=== PATIENT | male | born 1990 | race Caucasian/White ===

== ENCOUNTER 2020-10-27 20:05 | Emergency (ER) | payer MEDICAID, SELFPAY ==
[2020-10-27 20:15] VITALS: BP 128/86; PULSE 73; RESP 14; TEMP 37.6; O2SAT 100
[2020-10-27 20:25] LABS: Basophils Percent Auto 0.4 % (0.2-1.2); Eosinophils Absolute Auto 0.2 K/mm3 (0-0.3); Eosinophils Percent Auto 1.6 % (0-4.4); Hematocrit 41.6 % (42.0-52.0); Hemoglobin 14.1 g/dL (14.0-18.0); Immature Granulocyte Absolute 0.03 K/mm3 (0.00-0.031); Immature Granulocyte Percent A 0.3 % (0-0.5); Lymphocytes Absolute Auto 2.73 K/mm3 (0.9-3.2); Lymphocytes Percent Auto 26.6 % (18.3-44.2); Mean Corpuscular HGB Conc 33.9 g/dl (32-36); Mean Corpuscular Hemoglobin 31.1 pg (26-34); Mean Corpuscular Volume 91.6 fl (80-100); Mean Platelet Volume 9.6 fl (7.4-10.4); Monocytes Absolute Auto 0.8 K/mm3 (0.1-0.6); Monocytes Percent Auto 7.3 % (2.6-8.5); Neutrophils Absolute Auto 6.6 K/mm3 (1.3-6.7); Neutrophils Percent Auto 63.8 % (45.5-73.1); Platelet Count Result 266 k/mm3 (150-375); Red Blood Count 4.54 M/mm3 (4.6-6.20); Red Cell Distribution Width 12.6 % (11.5-14.5); White Blood Count 10.3 K/mm3 (4.5-10.0)
[2020-10-27 20:34] LABS: Alanine Aminotransferase 22 U/L (4-50); Albumin Level 4.6 g/dL (3.5-5.1); Alkaline Phosphatase 57 U/L (38-126); Anion Gap 15 mmol/L (8-16); Aspartate Amino Transferase 28 U/L (17-59); Bilirubin,Total 0.2 mg/dL (0.2-1.3); Blood Urea Nitrogen 17 mg/dL (9-20); Calcium 9.1 mg/dL (8.4-10.2); Carbon Dioxide 27 mmol/L (22-30); Chloride 99 mmol/L (98-107); Estimated CRCL calculation 99 ml/min; Estimated Glomerular Filt Rate > 60; Glucose 107 mg/dL (65-110); Lipase 148 U/L (23-300); Sodium 141 mmol/L (137-145)
[2020-10-27 21:08] LABS: Add Urine Microscopic? YES; Appearance Urine Clear (Clear); Bilirubin Urine Negative (Negative); Blood Urine Negative (Negative); Color Urine Yellow (Yellow); Glucose Urine UA Negative (Negative); Ketones Urine Negative (Negative); Leukocyte Esterase Ur Negative LEU/UL (Negative); Mucus Urine Few /lpf; Nitrate Urine Negative (Negative); Protein Urine Negative (Negative); RBC Urine 0-2 /hpf (0-2); Specific Grav Ur 1.029 (1.001-1.035); Squamous Epithelial Cell Urine Rare /hpf (Few); Urobilinogen Urine Negative mg/dL (<2.0); WBC Urine 0-3 /hpf
[2020-10-27 22:22] VITALS: BP 130/92; PULSE 69; RESP 15; O2SAT 99
--- NOTE | 2020-10-27 22:33 | ED.GENADULT ---
HPI - General Adult General Chief complaint: Nausea/Vomiting/Diarrhea Stated complaint: diarrhea stomach issues and blood in stool Time Seen by Provider: 10/27/20 22:20 Source: patient and family Mode of arrival: ambulatory Limitations: no limitations History of Present Illness HPI narrative: 30-year-old with no major medical problems here with complaints of having diarrhea for almost 1 month about 4 or 5 times a day. He at times notices bright red blood. Also complains of lower abdominal cramping. He denies any fever or chills. No change in recent diet pattern. No history of fever or chills. No recent antibiotic use. Patient states that he does not have a primary doctor or insurance at this time for to see a specialist. Related Data Allergies Allergy/AdvReac Type Severity Reaction Status Date / Time No Known Allergies Allergy Unverified 12/09/10 00:46 Review of Systems Review of Systems: All systems reviewed & are unremarkable except as noted in HPI and below Constitutional: Constitutional: Reports no additional constitutional complaints Eyes: Eyes: Reports no additional eye complaints ENT: Reports system reviewed and no additional complaints, except as documented Cardiovascular: Cardiovascular: Reports no additional cardiovascular complaints Respiratory: Respiratory: Reports no additional respiratory complaints Gastrointestinal: Gastrointestinal: Reports as per HPI Musculoskeletal: Musculoskeletal: Reports no additional musculoskeletal complaints Integumentary/Breasts: Skin/Breast: Reports system reviewed and no additional complaints, except as docu Neurologic: Reports system reviewed and no additional complaints, except as documented Exam Narrative: GENERAL: Well-appearing, well-nourished, and in no acute distress. HEAD: Normocephalic, atraumatic. EYES: PERRLA and EOMI. NECK: Supple. CHEST: Clear to auscultation. No respiratory distress. HEART: Regular rate and rhythm. No murmur heard. Normal peripheral pulses. ABDOMEN: Soft, nontender, nondistended, normal active bowel sounds. EXTREMITIES: Normal range of motion. No edema. SKIN: Warm, dry, no rash. NEURO: No focal deficits. Alert and oriented x3. PSYCH: Normal mood and affect. Course Course Emergency Course: Inform patient and his family about his lab work. At this time it does not appear to be any infectious origin. Patient needs to follow-up with GI or his primary doctor for further work-up of his diarrhea. Advised him to follow-up with the timekeeper in the next few days. Also recommended him to take Imodium as needed. Vital Signs Vital signs: Vital Signs Temperature 37.6 C H 10/27/20 20:15 Pulse Rate 73 10/27/20 20:15 Respiratory Rate 14 10/27/20 20:15 Blood Pressure 128/86 10/27/20 20:15 Pulse Oximetry 100 10/27/20 20:15 Temperature 37.6 C H 10/27/20 20:15 Pulse Rate 69 10/27/20 22:22 Respiratory Rate 15 10/27/20 22:22 Blood Pressure 130/92 H 10/27/20 22:22 Pulse Oximetry 99 10/27/20 22:22 Medical Decision Making Vital Signs Vital Signs: Vital Signs Temperature 37.6 C H 10/27/20 20:15 Pulse Rate 73 10/27/20 20:15 Respiratory Rate 14 10/27/20 20:15 Blood Pressure 128/86 10/27/20 20:15 Pulse Oximetry 100 10/27/20 20:15 Temperature 37.6 C H 10/27/20 20:15 Pulse Rate 69 10/27/20 22:22 Respiratory Rate 15 10/27/20 22:22 Blood Pressure 130/92 H 10/27/20 22:22 Pulse Oximetry 99 10/27/20 22:22 Lab Data Result diagrams: 10/27/20 20:18 10/27/20 20:18 Labs: Lab Results 10/27/20 10/27/20 10/27/20 Range/Units 20:18 20:18 20:37 WBC 10.3 H (4.5-10.0) K/mm3 RBC 4.54 L (4.6-6.20) M/mm3 Hgb 14.1 (14.0-18.0) g/dL Hct 41.6 L (42.0-52.0) % MCV 91.6 (80-100) fl MCH 31.1 (26-34) pg MCHC 33.9 (32-36) g/dl RDW 12.6 (11.5-14.5) % Plt Count 266 (150-375) k/mm3 MPV 9.6 (7.4-10.4) fl Taylor
== END 2020-10-27 22:59 | disposition home or self-care (01) ==
LOC: ANHED 23:05
PROVIDERS: Emergency Provider Family Medicine
DX: R19.7 Diarrhea, unspecified (principal)
CPT/HCPCS: 36415; 80053; 81001; 83690; 85025; 99283

== ENCOUNTER → 2021-01-04 03:51 | Outpatient (CLI) | payer OTHER, SELFPAY ==
[2021-01-04 16:54] LABS: SARS-CoV-2 RNA PCR Negative
== END ==
PROVIDERS: PCP Family Medicine; Visit Provider Internal Medicine Gastroenterology
DX: Z01.812 Encounter for preprocedural laboratory examination (principal); Z20.822 Contact with and (suspected) exposure to COVID-19
CPT/HCPCS: C9803; U0003; U0005

== ENCOUNTER 2021-01-07 01:27 | Day surgery (SDC) | payer OTHER, SELFPAY ==
[2020-12-29 13:58] VITALS: BMI 24.3
--- NOTE | 2021-01-06 20:02 | P.HP_ITS ---
History of Present Illness History of Present Illness Consent: Risks, benefits, and alternatives have been discussed and questions answered. Patient agrees to proceed with procedure. Chief complaint: diarrhea Narrative: Arvind Casillas is a 30 year old male About 6 weeks ago he began having loose stools. He is having diarrhea for 5 times a day. About 2 weeks after it began he started having blood in his stools which was read he then noticed some lower abdominal cramping as well. There was no fever. He had not been on antibiotics prior to this that he had not been traveling. He went to the emergency room on October 27. There he was noted to be afebrile and blood work revealed [place] [id number]. W he has been having a pain near the right ribcage that feels like his skin is stretched this comes and goes. 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 States that now his stools are almost normal but very soft. He is no longer seen blood that having resolved about 2 weeks ago he does still get pains. He has a stretching type discomfort near the right costal margin laterally it comes and goes. He also has some discomfort from time to time in the left lower quadrant. There is no family history of inflammatory bowel disease and he is not on any medication. P-anca was elevated 1:40, suggesting Ulcerative Coliitis Review of Systems Review of Systems: All systems reviewed & are unremarkable except as noted in HPI and below PMFSH Past Medical History Medical History Smoker Surgical History Surgical History History of foot surgery Social History Social History Smoking status: Current every day smoker Tobacco type: e-cigarettes/vaping Substance use: current Substance use type: marijuana Living arrangements: with friend(s) Spiritual care concerns: No Meds Home Medications and Allergies Home Medications Medication Instructions Recorded Confirmed Type Bacillus coagulans 800 million 800 cell PO DAILY 12/21/20 12/29/20 History cell tablet Allergies Allergy/AdvReac Type Severity Reaction Status Date / Time No Known Allergies Allergy Verified 01/07/21 10:50 Exam Const: General: alert Orientation/consciousness: patient oriented x3 Resp: Auscultation: clear to auscultation bilaterally Cardio: Rhythm: regular rhythm GI: GI Palp: Yes Soft to palpation and No Tenderness to palpation present (GI) Neuro: General: patient oriented x3 Assessment and Plan Assessment and plan (1) Chronic diarrhea: Code(s): K52.9 - Noninfective gastroenteritis and colitis, unspecified Status: Acute Assessment and Plan: Colonoscopy with possible biopsy or polypectomy or cautery or injection of substances.
[2021-01-07 10:52] VITALS: BP 115/64; PULSE 56; RESP 16; TEMP 36.7; O2SAT 99; BMI 22.6
[2021-01-07] MEDS: LACTATED RINGERS 1,000 ML 150 ML IV CONT (10:55)
--- NOTE | 2021-01-07 11:12 | P.PNAN_ITS ---
Anes - Initial Pre Proc Eval Procedure: Operation Date: 01/07/21 11:30 Proposed Procedures p Colonoscopy - Zbigniew Sunshine MD Date/Time: 01/07/21 11:12 Surgeon: Zbigniew Sunshine MD Pre Op Diagnosis: diarrhea Patient Data Age: 30 Gender: M Height: 1.73 m Weight: 67.5 kg Last Vital Signs Temp 36.7 C 01/07/21 10:52 Pulse 56 L 01/07/21 10:52 Resp 16 01/07/21 10:52 BP 115/64 01/07/21 10:52 Pulse Ox 99 01/07/21 10:52 Allergies Allergy/AdvReac Type Severity Reaction Status Date / Time No Known Allergies Allergy Verified 01/07/21 10:50 Home Medications Medication Instructions Recorded Confirmed Type Bacillus coagulans 800 million 800 cell PO DAILY 12/21/20 12/29/20 History cell tablet Patient hx anesthesia problems: none Family hx anesthesia problems: none Results Review: All pre-operative results and documents have been reviewed as part of the pre-operative evaluation. [facility] Past Medical History Medical History Smoker Surgical History Surgical History (Updated 01/07/21 @ 11:13 by Caleb Potts MD) History of foot surgery Social History Social History Smoking status: Current every day smoker Tobacco type: e-cigarettes/vaping Substance use: current Substance use type: marijuana Living arrangements: with friend(s) Spiritual care concerns: No Anes - Eval Final PreProcedure Day of Procedure 01/07/21 11:12 Patient weight: normal Heart: regular rate and rhythm Lungs: clear to auscultation Airway: Mallampati scale class II Neurological: alert and oriented Last oral intake: >/= 8 hours ASA classification: II Emergent: no Anesthetic plan: proceed Anesthesia type and monitoring: general GIVS and standard monitoring Results Review: All pre-operative results and documents have been reviewed as part of the pre-operative evaluation. Informed Consent: The patient's anesthetic plan and its attendant risks and benefits were discussed with the patient/family/POA. Questions were solicited and answers provided to the satisfaction of the patient/family/POA.
[2021-01-07 12:18] VITALS: BP 92/51; PULSE 58; RESP 23; O2SAT 98
[2021-01-07 12:28] VITALS: BP 103/67; PULSE 59; RESP 22; O2SAT 99
[2021-01-07 12:38] VITALS: BP 118/76; PULSE 59; RESP 18; O2SAT 100
== END 2021-01-07 12:47 | disposition home or self-care (01) ==
PROVIDERS: Visit Provider Internal Medicine Gastroenterology
PROC: 0DJD8ZZ Inspection of Lower Intestinal Tract, Via Natural or Artificial Opening Endoscopic (ICD-10-PCS; CPT 45378; principal; 2021-01-07 11:30)
DX: K92.1 Melena (principal); K52.9 Noninfective gastroenteritis and colitis, unspecified; F12.90 Cannabis use, unspecified, uncomplicated; F17.290 Nicotine dependence, other tobacco product, uncomplicated
CPT/HCPCS: 45380; 88305; J2704; J7120